=== PATIENT | male | born 1960 | race Caucasian/White ===

== ENCOUNTER 2021-04-09 13:54 | Emergency (ER) | payer OTHER, SELFPAY ==
[2021-04-09 14:03] VITALS: BP 124/77; PULSE 73; RESP 18; TEMP 37.1; O2SAT 96; BMI 31.0
--- NOTE | 2021-04-09 14:26 | ECG_ITS ---
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 Measurements Intervals [place] Rate: 64 P: 18 [place]: 132 QRS: 7 QRSD: 106 T: 22 QT: 377 QTc: 391 Interpretive Statements SINUS RHYTHM No previous ECG available for comparison Electronically Signed On 04-10-2021 10:10:35 CDT by Maki Hernandez M.D. [id number]
--- NOTE | 2021-04-09 14:26 | XR_ITS ---
WS: [id number] Portable AP upright chest, 04/09/2021 Clinical Data: chest pain Comparison: None. Findings: No nodules, masses or effusions are seen. The heart is normal. The pulmonary vascularity is not increased. No pneumonia or pneumothorax is seen. XR/XR chest 1V portable [id number] Impression: Negative chest.
[2021-04-09 14:46] LABS: Basophils % 0.6 %; Eosinophils # 0.3 10^3/uL (0.0-0.8); Hematocrit 43.3 % (42.0-52.0); Hemoglobin 15.4 g/dL (11.7-16.6); Lymphocytes # 1.3 10^3/uL (0.8-4.8); Lymphocytes % 19.2 %; Mean Corpuscular HGB Conc 35.6 g/dL (30.0-36.0); Mean Corpuscular Hemoglobin 31.8 pg (28.0-34.0); Mean Corpuscular Volume 89.3 fL (80-94); Mean Platelet Volume 11.4 fL (7.4-10.4); Monocytes # 0.3 10^3/uL (0.2-0.9); Monocytes % 4.6 %; Neutrophils # 4.97 10^3/uL (1.8-7.7); Neutrophils % 71.3 %; Nucleated Red Blood Cells % 0 %; Platelet Count 125 10^3/cmm (130-400); Red Blood Count 4.85 10^6/uL (4.1-5.3); Red Cell Distribution Width 12.4 % (12.1-15.1)
[2021-04-09 15:09] LABS: Troponin(5th) Baseline 6 ng/L (0-15)
[2021-04-09 15:16] LABS: Alanine Aminotransferase 56 U/L (0-41); Albumin Level 4.6 g/dL (3.5-5.2); Alkaline Phosphatase 56 IU/L (40-130); Anion Gap 15.1 (5-19); Aspartate Amino Transferase 27 U/L (0-40); Blood Urea Nitrogen 22 mg/dL (8-23); Carbon Dioxide 25 mmol/L (22-29); Chloride 103 mmol/L (98-107); Globulin 2.4 g/dL (1.3-4.6); Glomerular Filtration Rate 68.3 mL/min (90-130); Glucose 96 mg/dL (65-115); Osmolality Calculated 291 mOsm/kg (285-295); Potassium 4.1 mmol/L (3.5-5.1); Sodium 139 mmol/L (136-145); Total Bilirubin 0.6 mg/dL (0.15-1.2)
[2021-04-09] MEDS: aspirin 81 mg Chew Tablet 324 MG PO (15:22)
[2021-04-09 15:27] VITALS: BP 129/78; PULSE 71; RESP 23; O2SAT 96
[2021-04-09 16:00] VITALS: BP 122/81; PULSE 61; RESP 16; O2SAT 94
--- NOTE | 2021-04-09 16:26 | ECG_ITS ---
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 Measurements Intervals [place] Rate: 58 P: 14 MS: 124 QRS: 16 QRSD: 108 T: 29 QT: 379 QTc: 374 Interpretive Statements SINUS BRADYCARDIA Compared to ECG 04/09/2021 14:52:33 Sinus rhythm no longer present Electronically Signed On 04-11-2021 0:00:29 CDT by Maki Hernandez M.D. [id number]
[2021-04-09 17:00] VITALS: BP 133/85; PULSE 63; RESP 25; O2SAT 94
[2021-04-09 17:22] LABS: Troponin 5 2HR Delta 0 ABS# (0-10)
--- NOTE | 2021-04-09 17:33 | W.ED.CHESTPA ---
HPI - Chest Pain General: Chief Complaint: Chest Pain Stated Complaint: chest pains. high blood preassure,L arm pain Time Seen by Provider: 04/09/21 14:43 History of Present Illness: HPI narrative: 60-year-old male presents with epigastric/substernal chest discomfort. Reports this started around noon. Has resolved prior to arrival. Patient was concerned about his blood pressure being a bit high. Patient had a very brief left arm tingling that resolved. This was after this chest pressure. Patient reports having all that after eating. He denies any nausea, vomiting, diaphoresis, shortness of breath or other systemic complaints. Associated symptoms: Deny abdominal pain, dyspnea, fever(s), nausea, palpitations, syncope or vomiting Review of Systems Const: Denies: fever(s) or chills Eyes: Denies: change in vision ENMT: Denies: throat pain Card: Reports: chest pain; Denies: palpitations, irregular heart rhythm, lightheadedness or syncope Resp: Denies: dyspnea, productive cough or wheezing GI: Denies: abdominal pain, nausea or vomiting : Denies: flank pain or difficulty urinating Musc: Denies: neck pain Skin/Breast: Denies: rash or pruritus Neuro: Denies: headache(s) or dizziness Physical Exam Const: COMMON NORMALS: no acute distress, average body habitus, patient oriented x3 and healthy appearing HENMT: COMMON NORMALS: normocephalic and atraumatic HEAD & SCALP: normocephalic and atraumatic Eye: COMMON NORMALS: Equal, round and reactive pupils present and EOMs intact bilaterally PUPIL: Yes Equal, round and reactive pupils present Neck/C-Spine: COMMON NORMALS: full ROM and supple Resp: COMMON NORMALS: normal respiratory effort, No retractions and clear to auscultation bilaterally AUSCULTATION: clear to auscultation bilaterally Cardio: COMMON NORMALS: regular rate and regular rhythm RATE: regular rate RHYTHM: regular rhythm GI: COMMON NORMALS: Normal to inspection, nondistended, normoactive bowel sounds present, Soft to palpation and non-tender PALPATION: Yes Soft to palpation Extremity: COMMON NORMALS: normal to inspection and full ROM Neuro: COMMON NORMALS: patient oriented x3, CN's II-XII intact bilaterally, moves all extremities and no focal motor deficits Psych: COMMON NORMALS: mental status grossly normal, cooperative and normal affect Skin: COMMON NORMALS: no rashes or lesions noted GENERAL SKIN EXAM: no rashes or lesions noted Course Vital Signs: Vital signs: Vital Signs Temperature 98.7 F 04/09/21 14:03 Pulse Rate 71 04/09/21 15:27 Respiratory Rate 23 H 04/09/21 15:27 Blood Pressure 129/78 04/09/21 15:27 Pulse Oximetry 96 04/09/21 15:27 MDM - Chest Pain MDM Narrative: Medical decision making narrative: Patient with no further chest pain while in the ER. Patient with 3 - EKGs and 2 - troponins. Discussed with patient that at this time it does not appear that he is having an acute heart attack. I did recommend he follow-up with maintenance groundskeeper for recheck on outpatient basis. Patient is otherwise stable and discharged Lab Data: Attestation: I reviewed the patient's lab results. Labs: Lab Results 04/09/21 04/09/21 04/09/21 Range/Units 14:20 14:20 14:20 WBC 7.0 (4.0-10.0) 10^3/ uL RBC 4.85 (4.1-5.3) 10^6/u L Hgb 15.4 (11.7-16.6) g/dL Hct 43.3 (42.0-52.0) % MCV 89.3 (80-94) fL MCH 31.8 (28.0-34.0) pg MCHC 35.6 (30.0-36.0) g/dL RDW 12.4 (12.1-15.1) % Plt Count 125 L (130-400) 10^3/c mm MPV 11.4 H (7.4-10.4) fL Neut % (Auto) 71.3 % Lymph % (Auto) 19.2 % [place] % (Auto) 4.6 % Eos % (Auto) 4.0 % Baso % (Auto) 0.6 % Neut # (Auto) 4.97 (1.8-7.7) 10^3/u L Lymph # (Auto) 1.3 (0.8-4.8) 10^3/u L [place] # (Auto) 0.3 (0.2-0.9) 10^3/u L Eos # (Auto) 0.3 (0.0-0.8) 10^3/u L Baso # (Auto) 0.0 (0.0-0.1) 10^3/u L Nucleated RBC % (a uto) 0 % Nucleated RBCs # 0.0 /100WBC Sodium 139 (136-145) mmol/L Potassium 4.1 (3.5-5.1) mmol/L Chloride 103 (98-107) mmol/L Carbon Dioxide 25 (22-29) mmol/L Anion Gap 15.1 (5-19) BUN 22 (8-23) mg/dL Creatinine 1.1 (0.7-1.2) mg/dL GFR Calculation 68.3 L (90-130) mL/min Glucose 96 (65-115) mg/dL Calculated Osmolal ity 291 (285-295) mOsm/k g Calcium 9.0 (8.5-10.5) mg/dL Total Bilirubin 0.6 (0.15-1.2) mg/dL AST 27 (0-40) U/L ALT 56 H (0-41) U/L Alkaline Phosphata se 56 (40-130) IU/L Troponin T Baselin e 6 (0-15) ng/L Troponin T 120 Min davina (0-15) ng/L Delta Troponin T (0-10) ABS# Total Protein 7.0 (6.6-8.7) g/dL Albumin 4.6 (3.5-5.2) g/dL Globulin 2.4 (1.3-4.6) g/dL 04/09/21 Range/Units 16:28 WBC (4.0-10.0) 10^3/ uL RBC (4.1-5.3) 10^6/u L Hgb (11.7-16.6) g/dL Hct (42.0-52.0) % MCV (80-94) fL MCH (28.0-34.0) pg MCHC (30.0-36.0) g/dL RDW (12.1-15.1) % Plt Count (130-400) 10^3/c mm MPV (7.4-10.4) fL Neut % (Auto) % Lymph % (Auto) % [place] % (Auto) % Eos % (Auto) % Baso % (Auto) % Neut # (Auto) (1.8-7.7) 10^3/u L Lymph # (Auto) (0.8-4.8) 10^3/u L [place] # (Auto) (0.2-0.9) 10^3/u L Eos # (Auto) (0.0-0.8) 10^3/u L Baso # (Auto) (0.0-0.1) 10^3/u L Nucleated RBC % (a uto) % Nucleated RBCs # /100WBC Sodium (136-145) mmol/L Potassium (3.5-5.1) mmol/L Chloride (98-107) mmol/L Carbon Dioxide (22-29) mmol/L Anion Gap (5-19) BUN (8-23) mg/dL Creatinine (0.7-1.2) mg/dL GFR Calculation (90-130) mL/min Glucose (65-115) mg/dL Calculated Osmolal ity (285-295) mOsm/k g Calcium (8.5-10.5) mg/dL Total Bilirubin (0.15-1.2) mg/dL AST (0-40) U/L ALT (0-41) U/L Alkaline Phosphata se (40-130) IU/L Troponin T Baselin e (0-15) ng/L Troponin T 120 Min davina 6.00 (0-15) ng/L Delta Troponin T 0 (0-10) ABS# Total Protein (6.6-8.7) g/dL Albumin (3.5-5.2) g/dL Globulin (1.3-4.6) g/dL Imaging Data^: CXR: Attestation: I personally reviewed and interpreted this imaging study as follows: My impression: No acute findings Radiologist's impression: Negative chest EKG Data^: EKG 1: Attestation: I personally reviewed and interpreted this EKG as follows: EKG interpretation date: 04/09/21 EKG interpretation time: 14:12 Interpretation: hr 72, normal sinus rhythm, SD interval 125, no ST changes, normal EKG EKG 2: EKG interpretation date: 04/09/21 EKG interpretation time: 14:52 Interpretation: Heart rate 62, no ST changes, unchanged from prior. Regular rhythm, normal EKG EKG 3: EKG interpretation date: 04/09/21 EKG interpretation time: 16:19 Interpretation: Sinus rhythm, heart rate 58, no acute ST changes, normal EKG, unchanged from 2 prior Discharge Plan Discharge Patient Disposition: Home Clinical Impression: Chest pain Qualifiers: Chest pain type: unspecified Qualified Code(s): R07.9 - Chest pain, unspecified Condition: Stable Prescriptions: No Action sertraline 100 mg Tablet 200 mg PO DAILY RF: 0 Discharge Orders: Discharge ED (Routine); Ordered 04/09/21 Ordered By: Edilberto Olea Referrals: Jatinder Dominguez [Primary Care Provider] - Discharge Diet: Usual diet Discharge Activity: Resume usual activity Patient Instructions: Chest Pain - Noncardiac, Chest Pain (ED), Opioid Safety Activity Restrictions/Additional Instructions: Follow-up with your primary care provider and maintenance groundskeeper for recheck of today's complaint return to the ER as needed Coding Level of Care Code ED [facility] Attendant for Chg Fwd Exam Comprehensive
[2021-04-09 18:11] VITALS: BP 113/78; PULSE 62; RESP 18; O2SAT 95
== END 2021-04-09 18:11 | disposition home or self-care (01) ==
PROVIDERS: Physician Assistant; Emergency Provider Student in an Organized Health Care Education/Training Program; Family Provider Family Medicine; PCP Family Medicine
DX: R07.9 Chest pain, unspecified (principal)
CPT/HCPCS: 36415; 71045; 80053; 84484; 85025; 93005; 99283

== ENCOUNTER 2021-08-14 07:08 | Outpatient (CLI) | payer OTHER, SELFPAY ==
[2021-08-14 07:21] VITALS: BMI 30.9
--- NOTE | 2021-08-14 07:22 | NMCV_ITS ---
NM isabella perf SPECT r/s* [id number] Sarmad Gomez Age: 60 Gender: M : 1960 Exam Date: 08/14/2021 08:28 Ordering Phys: Maki Hernandez MD ([email or web address]) Technologist: DANNIE Riggs Exam Location: [facility] Indications: SUPRAVENTRICULAR TACHYCARDIA STRESS TEST Please [facility] IMAGE PROTOCOL Rest/Stress 1 Exercise Day Radiopharmaceutical Dose (mCi) Administration Site Administered by Rest: Tc-99m 10.6 IV DANNIE Riggs Sestamibi Stress:Tc-99m 33.0 IV DANNIE Macedo Sestamibi Rest: 14-Aug-2021 60 Discovery 630 Stress: 14-Aug-2021 15 Discovery 630 Radiopharmaceutical was injected at 87 % maximum heart rate. Images obtained in supine and prone position. SPECT RESULTS Technical Quality: Excellent Raw Data Analysis: Normal Image Corrections: No attenuation or motion correction applied Summed Stress Score: 2 Summed Rest Score: 3 Summed Difference Score: 0 PERFUSION FINDINGS Patchy areas of decreased tracer uptake were noted in the anterolateral, inferoseptal and apical lateral regions. No significant reversibility was noted in these regions FUNCTIONAL RESULTS (calculated via Gated SPECT) Stress Image LV EF (%): 67 Stress EDV (mL):86 TID: 0.73 Stress ESV (mL):28 FUNCTIONAL FINDINGS: Segmental wall motion analysis revealing no gross wall motion abnormalities. IMPRESSIONS 1. Myocardial perfusion imaging revealing patchy areas of persistent decreased tracer uptake in the anterolateral, apical lateral and inferoseptal regions, suggestive of myocardial scarring versus attenuation artifact. 2. Normal LV ejection fraction of 67%. 3. LV wall motion analysis revealing no gross wall motion normalities. 4. Normal LV volume. No significant coronary ischemia, based on the above findings. No similar previous studies are available for comparison. Dr Maki Hernandez MD FACC (Electronically Signed) Final Date: 14 August 2021 14:27 S
--- NOTE | 2021-08-14 07:22 | ECG_ITS ---
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 Interpretive Statements NAME OF STUDY: EXERCISE SESTAMIBI STRESS TEST INDICATION: Chest Pain PROCEDURE: The baseline electrocardiogram showed normal sinus rhythm with normal ST Ts.. At the baseline, the patient's blood pressure was 138/78 mm Hg with a heart rate of 65. The patient exercised for 10 minutes and 1 second on a standard Ralf protocol. Patient attained a maximum heart rate of 161 beats per minute( 100 % of the maximum predicted heart rate) with a blood pressure at the peak exercise of 181/84 mm Hg. The EKG at the peak exercise revealed some nonspecific ST changes. PVCs in the form of isolated beats and couplets also were noted to reduce the peak exercise. Patient did not have any chest pain or any other specific symptoms of coronary ischemia with exercise. Sestamibi was injected 1 minute prior to the peak exercise During the recovery phase, there were no new changes. The EKG reverted back to the baseline Blood pressure at the end of the recovery phase was 146/89 mm Hg with a heart rate of 90 per minute. CONCLUSION: 1. Nonspecific EKG changes with the treadmill exercise 2. Exercise-induced ventricular arrhythmia with no chest pain or any other specific cardiac symptoms 3. Fair exercise tolerance, attained a maximum of 13.5 METs 4. Sestamibi/Sestamibi perfusion results pending; see separate report. Electronically Signed On 08-28-2021 23:49:12 CDT by Maki Hernandez M.D. [id number]
[2021-08-14 09:45] VITALS: BP 146/86; PULSE 88
== END 2021-08-14 07:09 | disposition home or self-care (01) ==
LOC: RAD 07:12 → CDL 07:19
PROVIDERS: PCP Family Medicine; Visit Provider Internal Medicine Cardiovascular Disease
DX: R07.9 Chest pain, unspecified (principal); R06.02 Shortness of breath
CPT/HCPCS: 78452; 93017; A9500

== ENCOUNTER → 2022-03-11 10:07 | Outpatient (BNVA) | payer OTHER, SELFPAY | PROVIDERS: PCP Family Medicine; Referring Provider Family Medicine; Visit Provider Surgery | DX: Z12.11 Encounter for screening for malignant neoplasm of colon (principal); K42.9 Umbilical hernia without obstruction or gangrene | CPT/HCPCS: 99203 ==

== ENCOUNTER 2022-05-28 07:51 | Day surgery (SDC) | payer OTHER, SELFPAY ==
--- NOTE | 2022-05-28 08:28 | W.PM.OPSFHP ---
Same Day Surgery H&P Indication for Procedure/HPI DATE OF PROCEDURE: May 28, 2022 CHIEF COMPLAINT/INDICATIONFOR SURGICAL PROCEDURE: Screening colonoscopy PREOP DIAGNOSIS: Screening colonoscopy PLANNED PROCEDURE: Operation Date: 05/28/22 09:30 Proposed Procedures p Colonoscopy 86410/Z12.11 encounter for screening for mal neop(Not Applicable) - Kirill Marcelino MD 03/11/2022 This is a pleasant 61 years old gentleman is referred to my practice for screening colonoscopy.? Patient had one back in 2009 reported as normal per his description and he also does have an umbilical hernia.? No history of polyps or bleeding per rectum or colon cancer. 05/28/2022 Patient comes today for screening colonoscopy ROS All systems have been reviewed negative except as for the above or per problem list. Medications/Allergies* Home Medications Medication Instructions Recorded Confirmed Type sertraline 100 mg tablet 200 mg PO DAILY 04/09/21 05/28/22 History fluticasone propionate 50 2 spray INTRANASAL DAILY 05/21/21 05/28/22 History mcg/actuation nasal spray,suspension (Flonase Allergy Relief) Allergies/Adverse Reactions Allergy/AdvReac Type Severity Reaction Status Date / Time No Known Allergies Allergy Verified 05/28/22 08:29 Pertinent History/Comorbid Conditions* Medical History (Updated 03/11/22 @ 12:53 by Kirill Marcelino MD) Anxiety Chest pain Chest wall pain Chronic back pain Chronic neck pain Depression Diverticulosis Myalgia Social phobia SVT (supraventricular tachycardia) Umbilical hernia Ventral hernia Surgical History (Updated 05/21/21 @ 15:50 by Maki Hernandez MD) H/O cardiac radiofrequency ablation Family History (Updated 05/21/21 @ 14:46 by Melissa De La Cruz RN) CAD (coronary artery disease) Father Family/Other Dementia Mother Grandfather Suicide Brother Lung disease Brother Cancer Father Denies family history of Diabetes Clotting disorder Chronic kidney disease (CKD) Anesthesia complication Bleeding disorder Stroke Social History Smoking and tobacco status: never smoked Alcohol intake: current Alcohol intake frequency: holidays/special occasions only Pertinent Exam Findings alert, oriented x 3, regular rate & rhythm and procedure specific exam findings (Abdominal exam nontender nondistended soft stable umbilical hernia) Recommendations Surgery/Procedure today (Colonoscopy with possible biopsy) Coding Level of Care Code Acute 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
[2022-05-28] MEDS: sodium chloride 0.9% 1,000 ML 30 ML IV (08:40)
--- NOTE | 2022-05-28 09:00 | P.ANESASSM_ITS ---
Pre-Anesthetic Assessment Height/Weight: Height 1.63 m Weight 83.915 kg Preop Diagnosis: Screening colonoscopy Operation Date: 05/28/22 09:30 Proposed Procedures p Colonoscopy 65173/Z12.11 encounter for screening for mal neop(Not Applicable) - Kirill Marcelino MD Familial anesthetic complications: None Was Beta Nick taken within 24 hours: N/A Was Clonidine taken within 24 hours: N/A Last intake: Intake Last Liquid Date 05/27/22 Last Liquid Time 20:00 Last Solid Date 05/26/22 Last Solid Time 18:00 Social Alcohol (1-2 beers a night) and Tobacco Exam alert, oriented x 3, clear to auscultation bilaterally and regular rate & rhythm Airway Mallampati: Class IV Dentition: full CV/HEM Arrythmia (SVT s/p- ablation) Musc/skel Lower Back Pain Anesthetic Plan ASA status: 2 Anesthesia: MAC Medications/Allergies Home Medications Medication Instructions Recorded Confirmed Last Taken Type sertraline 100 mg tablet 200 mg PO DAILY 04/09/21 05/28/22 05/26/22 History fluticasone propionate 50 2 spray INTRANASAL DAILY 05/21/21 05/28/22 05/26/22 History mcg/actuation nasal spray,suspension (Flonase Allergy Relief) nitroglycerin 0.4 mg sublingual 0.4 mg SUBLINGUAL Q5M PRN 30 Days 05/21/21 05/28/22 Unknown Rx tablet #30 tab Allergies Allergy/AdvReac Type Severity Reaction Status Date / Time No Known Allergies Allergy Verified 05/28/22 08:29 [facility] Anesthesia Medical History Anxiety Chest pain Chest wall pain Chronic back pain Chronic neck pain Depression Diverticulosis Myalgia Social phobia SVT (supraventricular tachycardia) Umbilical hernia Ventral hernia Surgical History H/O cardiac radiofrequency ablation Family History Mother Dementia Father Cancer CAD (coronary artery disease) Family/Other CAD (coronary artery disease) Grandfather Dementia Brother Lung disease Suicide Denies family history of Diabetes Clotting disorder Chronic kidney disease (CKD) Anesthesia complication Bleeding disorder Stroke Social History Smoking and tobacco status: never smoked Alcohol intake: current Alcohol intake frequency: holidays/special occasions only Data Anesthesia Cardiac Studies: Sestamibi Stress Test (Cardiology) 08/14/21
[2022-05-28 10:04] VITALS: BP 90/65; PULSE 66; RESP 12; TEMP 36.4; O2SAT 95
[2022-05-28 10:23] VITALS: BP 104/75; PULSE 52; RESP 16; O2SAT 98
--- NOTE | 2022-05-28 16:33 | ANE.PACU2 ---
Inpatient post-anesthesia follow up: Airway intact: Yes Vital signs: Temperature 97.5 F Pulse Rate 52 Respiratory Rate 16 Blood Pressure 104/75 Pulse Oximetry 98 Oxygen Delivery Me thod Room Air Oxygen Flow Rate Fraction of Inspir ed Oxygen Hydration adequate: Yes Nausea and vomiting: No Pain level: 1 Mental status: Baseline
== END 2022-05-28 10:35 | disposition home or self-care (01) ==
PROVIDERS: Visit Provider Surgery
PROC: 0DJD8ZZ Inspection of Lower Intestinal Tract, Via Natural or Artificial Opening Endoscopic (ICD-10-PCS; CPT 45378; principal; 2022-05-28 09:30)
DX: Z12.11 Encounter for screening for malignant neoplasm of colon (principal); K57.30 Diverticulosis of large intestine without perforation or abscess without bleeding; D12.4 Benign neoplasm of descending colon; D12.5 Benign neoplasm of sigmoid colon
CPT/HCPCS: 45385; 88305; J2704; J7030

== ENCOUNTER → 2022-06-04 15:25 | Outpatient (BNVA) | payer OTHER, SELFPAY | PROVIDERS: PCP Family Medicine; Visit Provider Surgery | DX: Z09 Encounter for follow-up examination after completed treatment for conditions other than malignant neoplasm (principal); K63.5 Polyp of colon; K57.31 Diverticulosis of large intestine without perforation or abscess with bleeding | CPT/HCPCS: 99213 ==

== ENCOUNTER 2023-01-30 17:59 | Emergency (ER) | payer OTHER, SELFPAY ==
--- NOTE | 2023-01-30 18:04 | XRR_ITS ---
PROCEDURE INFORMATION: Exam: XR Chest Exam date and time: 01/30/2023 6:08 PM Age: 62 years old Clinical indication: Pain; Other: Burping; Prior surgery; Surgery type: Heart; Additional info: Cp TECHNIQUE: Imaging protocol: Radiologic exam of the chest. Views: 1 view. COMPARISON: CR XR chest 1V portable [id number] 04/09/2021 2:37 PM FINDINGS: Lungs: The lung bases are suboptimally assessed due to technique however the upper lungs are clear of focal consolidation. Pleural spaces: Unremarkable. No pleural effusion. No pneumothorax. Heart/Mediastinum: Cardiac silhouette appears normal in size. No obvious vascular congestion. Bones/joints: No acute osseous findings. Other findings: Single view was submitted. XR/XR chest 1V portable [id number] IMPRESSION: No obvious acute consolidation. Suboptimal lung base assessment. Followup including lateral view may be obtained if clinically indicated.
[2023-01-30 18:18] VITALS: BP 139/96; PULSE 76; RESP 17; TEMP 36.8; O2SAT 94; BMI 31.7
--- NOTE | 2023-01-30 18:22 | ED_ITS ---
HPI - Chest Pain General: Chief Complaint: Chest Pain Stated Complaint: cp Time Seen by Provider: 01/30/23 18:16 Source: patient Mode of arrival: ambulatory Limitations: no limitations History of Present Illness: 62-year-old male states he was working in his garage yesterday and he felt a slight pop in his left chest and states has been having some sharp chest pain since then he states improved the night but then again today started having some intermittent pains with some clamminess he denies any shortness of breath or nausea or vomiting he states he is currently pain-free denies any cough. Associated symptoms: Deny abdominal pain, dyspnea, fever(s), nausea or vomiting Review of Systems Const: Denies: fever(s), chills, body aches or change in appetite Eyes: Denies: blurry vision or eye discomfort ENMT: Denies: throat pain or dental pain Card: Reports: chest pain Resp: Denies: dyspnea GI: Denies: abdominal pain, nausea, vomiting or diarrhea : Denies: dysuria Musc: Denies: neck pain or back pain Skin/Breast: Denies: rash Neuro: Denies: headache(s) Psych: Denies: depression Benny/Lymph: Denies: easy bruising All/Imm: Denies: urticaria PFSH ED PFSH: Medical History Anxiety Chest pain Chest wall pain Chronic back pain Chronic neck pain Depression Diverticulosis Myalgia Social phobia SVT (supraventricular tachycardia) Umbilical hernia Ventral hernia Surgical History H/O cardiac radiofrequency ablation Family History Mother Dementia Father Cancer CAD (coronary artery disease) Family/Other CAD (coronary artery disease) Grandfather Dementia Brother Lung disease Suicide Denies family history of Diabetes Clotting disorder Chronic kidney disease (CKD) Anesthesia complication Bleeding disorder Stroke Social History Smoking and tobacco status: never smoked Alcohol intake: current Alcohol intake frequency: holidays/special occasions only Physical Exam Const: COMMON NORMALS: no acute distress, patient oriented x3 and healthy appearing HENMT: COMMON NORMALS: normocephalic and atraumatic HEAD & SCALP: normocephalic and atraumatic Eye: COMMON NORMALS: Equal, round and reactive pupils present and EOMs intact bilaterally PUPIL: Yes Equal, round and reactive pupils present Neck/C-Spine: COMMON NORMALS: full ROM and supple Chest: COMMONS NORMALS: normal inspection of the chest and normal palpation of entire chest wall Resp: COMMON NORMALS: normal respiratory effort, No retractions, No use of accessory muscles and clear to auscultation bilaterally AUSCULTATION: clear to auscultation bilaterally Cardio: COMMON NORMALS: regular rate, regular rhythm and No murmurs present (Cardio) RATE: regular rate RHYTHM: regular rhythm GI: COMMON NORMALS: Normal to inspection, nondistended, normoactive bowel sounds present, Soft to palpation, non-tender and no masses PALPATION: Yes Soft to palpation Extremity: COMMON NORMALS: normal to inspection and full ROM Neuro: COMMON NORMALS: patient oriented x3, moves all extremities and no focal motor deficits Psych: COMMON NORMALS: mental status grossly normal, Normal thought process present and cooperative THOUGHT PROCESS: Normal thought process present Skin: COMMON NORMALS: no rashes or lesions noted and no wounds GENERAL SKIN EXAM: no rashes or lesions noted Course Vital Signs: Vital signs: Vital Signs Temperature 98.2 F 01/30/23 18:18 Pulse Rate 66 01/30/23 19:12 Respiratory Rate 18 01/30/23 19:12 Blood Pressure 131/78 01/30/23 19:12 Pulse Oximetry 93 01/30/23 19:12 Oxygen Delivery Me thod 01/30/23 19:12 MDM - Chest Pain Medical Decision Making Patient presents for chest pains likely chest wall pain his troponins here are normal he is well-appearing here he is stable for discharge he is to follow-up with PCP and return if worsening. Lab Data 01/30/23 18:28 01/30/23 18:28 Radiology Impressions Chest X-Ray 01/30/23 18:04 IMPRESSION: No obvious acute consolidation. Suboptimal lung base assessment. Followup including lateral view may be obtained if clinically indicated. Laboratory Results WBC 7.6 10^3/uL (4.0-10.0) 01/30/23 18:28 RBC 4.71 10^6/uL (4.1-5.3) 01/30/23 18:28 Hgb 14.8 g/dL (11.7-16.6) 01/30/23 18: Hct 42.4 % (42.0-52.0) 01/30/23 18: MCV 90.0 fl (80-94) 01/30/23 18: MCH 31.4 pg (28.0-34.0) 01/30/23 18: MCHC 34.9 g/dL (30.0-36.0) 01/30/23 18: RDW 12.6 % (12.1-15.1) 01/30/23 18: Plt Count 128 10^3/cmm (130-400) L 01/30/23 18 MPV 11.3 fL (7.4-10.4) H 01/30/23 18: Neut % (Auto) 63.9 % 01/30/23 18: Lymph % (Auto) 24.4 % 01/30/23 18: [place] % (Auto) 4.9 % 01/30/23 18: Eos % (Auto) 5.8 % 01/30/23 18: Baso % (Auto) 0.5 % 01/30/23 18: Neut # (Auto) 4.84 10^3/uL (1.8-7.7) 01/30/23: Lymph # (Auto) 1.9 10^3/uL (0.8-4.8) 01/30/23 18: [place] # (Auto) 0.4 10^3/uL (0.2-0.9) 01/30/23 18: Eos # (Auto) 0.4 10^3/uL (0.0-0.8) 01/30/23 18: Baso # (Auto) 0.0 10^3/uL (0.0-0.1) 01/30/23 18 Nucleated RBC % (auto) 0 % 01/30/23 18: Nucleated RBCs # 0.0 /100WBC 01/30/23 18: Sodium 140 mmol/L (136-145) 01/30/23 18: Potassium 4.0 mmol/L (3.5-5.1) 01/30/23 18:28 Chloride 104 mmol/L (98-107) 01/30/23 18:28 Carbon Dioxide 24 mmol/L (22-29) 01/30/23 18:28 Anion Gap 16.0 (5-19) 01/30/23 18:28 BUN 24 mg/dL (8-23) H 01/30/23 18:28 Creatinine 0.8 mg/dL (0.7-1.2) 01/30/23 18:28 GFR Calculation 98.0 mL/min (90-130) 01/30/23 18:28 Glucose 82 mg/dL (65-115) 01/30/23 18:28 Calculated Osmolality 293 mOsm/kg (285-295) 01/30/23 18:28 Calcium 9.1 mg/dL (8.5-10.5) 01/30/23 18:28 Total Bilirubin 0.5 mg/dL (0.15-1.2) 01/30/23 18:28 AST 24 U/L (0-40) 01/30/23 18:28 ALT 44 U/L (0-41) H 01/30/23 18:28 Alkaline Phosphatase 69 U/L (40-130) 01/30/23 18:28 Troponin T Baseline 6 ng/L (0-15) 01/30/23 18:28 Troponin T 120 Minute 6.00 ng/L (0-15) 01/30/23 20:05 Total Protein 6.8 g/dL (6.6-8.7) 01/30/23 18:28 Albumin 4.6 g/dL (3.5-5.2) 01/30/23 18:28 Globulin 2.2 g/dL (1.3-4.6) 01/30/23 18:28 Lipase 18 U/L (13-60) 01/30/23 18:28 EKG Data EKG 1: I personally reviewed and interpreted this EKG as follows: EKG interpretation date: 01/30/23 EKG interpretation time: 18:22 Interpretation: nsr hr [address] or t wave abnormalities qrs 103 qtc 377 EKG 2: I personally reviewed and interpreted this EKG as follows: EKG interpretation date: 01/30/23 EKG interpretation time: 20:06 Interpretation: nsr hr [address] or t wave abnormalities qrs 103 qtc 388 Discharge Plan Discharge Patient Disposition: Home Clinical Impression: Chest pain Condition: Stable Prescriptions: New Naprosyn 500 mg tablet 500 mg PO BID PRN (Reason: pain) Qty: 20 0RF No Action fluticasone propionate [Flonase Allergy Relief] 50 mcg/actuation spray,suspension 2 spray intranasal DAILY Rx Instructions: administer into each nostril nitroglycerin 0.4 mg tablet, sublingual 0.4 mg sublingual Q5M PRN (Reason: chest pain) 30 Days Qty: 30 3RF Rx Instructions: until response; do not exceed 3 doses per episode sertraline 100 mg Tablet 200 mg PO DAILY Discharge Orders: Discharge ED (Routine); Ordered 01/30/23 Ordered By: Jung Marsh Referrals: Jaycee Araujo MD [Primary Care Provider] - 1-3 days Discharge Diet: Advance as tolerated Discharge Activity: Resume usual activity Patient Instructions: Chest Pain (ED) Coding Level of Care Code ED Station Agent for Jessica Lind
--- NOTE | 2023-01-30 18:22 | ECG_ITS ---
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 Measurements Intervals [place] Rate: 70 P: 15 SD: 133 QRS: 13 QRSD: 103 T: 26 QT: 356 QTc: 386 Interpretive Statements SINUS RHYTHM Compared to ECG 04/09/2021 16:19:15 Sinus bradycardia no longer present Electronically Signed On 01-31-2023 19:39:07 CDT by Maki Hernandez M.D. [email or web address] [email or web address] Visionhenry county hospitalProject [email or web address]/store/[id number]
[2023-01-30 18:35] LABS: Basophils % 0.5 %; Eosinophils # 0.4 10^3/uL (0.0-0.8); Eosinophils % 5.8 %; Hematocrit 42.4 % (42.0-52.0); Hemoglobin 14.8 g/dL (11.7-16.6); Lymphocytes # 1.9 10^3/uL (0.8-4.8); Lymphocytes % 24.4 %; Mean Corpuscular HGB Conc 34.9 g/dL (30.0-36.0); Mean Corpuscular Hemoglobin 31.4 pg (28.0-34.0); Mean Platelet Volume 11.3 fL (7.4-10.4); Monocytes # 0.4 10^3/uL (0.2-0.9); Monocytes % 4.9 %; Neutrophils # 4.84 10^3/uL (1.8-7.7); Neutrophils % 63.9 %; Nucleated Red Blood Cells % 0 %; Platelet Count 128 10^3/cmm (130-400); Red Blood Count 4.71 10^6/uL (4.1-5.3); Red Cell Distribution Width 12.6 % (12.1-15.1); White Blood Count 7.6 10^3/uL (4.0-10.0)
[2023-01-30 18:53] LABS: Troponin(5th) Baseline 6 ng/L (0-15)
[2023-01-30 18:54] LABS: Alanine Aminotransferase 44 U/L (0-41); Albumin Level 4.6 g/dL (3.5-5.2); Alkaline Phosphatase 69 U/L (40-130); Aspartate Amino Transferase 24 U/L (0-40); Blood Urea Nitrogen 24 mg/dL (8-23); Calcium 9.1 mg/dL (8.5-10.5); Carbon Dioxide 24 mmol/L (22-29); Chloride 104 mmol/L (98-107); Globulin 2.2 g/dL (1.3-4.6); Glucose 82 mg/dL (65-115); Lipase 18 U/L (13-60); Osmolality Calculated 293 mOsm/kg (285-295); Sodium 140 mmol/L (136-145); Total Bilirubin 0.5 mg/dL (0.15-1.2); Total Protein 6.8 g/dL (6.6-8.7)
[2023-01-30 19:12] VITALS: BP 131/78; PULSE 66; RESP 18; O2SAT 93
[2023-01-30] MEDS: aspirin 81 mg Chew Tablet 324 MG PO (19:15)
--- NOTE | 2023-01-30 20:06 | ECG_ITS ---
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 Measurements Intervals [place] Rate: 63 P: 16 [place]: 132 QRS: 7 QRSD: 103 T: 21 QT: 380 QTc: 391 Interpretive Statements SINUS RHYTHM Compared to ECG 01/30/2023 18:22:16 No significant changes Electronically Signed On 01-31-2023 23:20:34 CDT by Maki Hernandez M.D. [email or web address] Gorillapatient[facility] countyi2i[email or web address]/[id number]
[2023-01-30 20:50] VITALS: BP 129/81; PULSE 69; O2SAT 94
[2023-01-30 20:54] VITALS: BP 129/81; PULSE 69; RESP 18; O2SAT 94
[2023-01-30 20:54] LABS: Troponin 5 2HR Delta 0 ABS# (0-10)
== END 2023-01-30 20:53 | disposition home or self-care (01) ==
PROVIDERS: Emergency Provider Emergency Medicine; PCP Family Medicine
DX: R07.9 Chest pain, unspecified (principal); Z82.49 Family history of ischemic heart disease and other diseases of the circulatory system
CPT/HCPCS: 71045; 80053; 83690; 84484; 85025; 93005; 99285

== ENCOUNTER 2024-03-14 08:11 | Outpatient (CLI) | payer OTHER, SELFPAY ==
--- NOTE | 2024-03-14 08:15 | US_ITS ---
WS: [id number] RIGHT UPPER QUADRANT ULTRASOUND HISTORY: ELEVATED LIVER ENZYMES COMPARISON: None available. Liver: 16.8 cm in length. Moderate hepatic steatosis. Coarse echotexture with loss of the normal pare nchyma. No bile duct dilatation. No mass. Portal Vein: Normal hepatopetal flow with monophasic waveform. Gallbladder: Normally distended gallbladder with no stones or wall thickening. CBD: 0.3 cm Pancreas: Poorly visualized. Right kidney: 10.7 cm in length. Normal size and echogenicity. No hydronephrosis or mass. Aorta and IVC: Unremarkable abdominal aorta and IVC. No ascites. IMPRESSION: 1. Normal gallbladder. 2. Moderate hepatic steatosis. No bile duct dilatation.
== END 2024-03-14 08:12 | disposition home or self-care (01) ==
LOC: RAD 08:11
PROVIDERS: PCP Family Medicine; Visit Provider Family Medicine
DX: R74.01 Elevation of levels of liver transaminase levels (principal); K76.0 Fatty (change of) liver, not elsewhere classified
CPT/HCPCS: 76705

== ENCOUNTER 2024-07-06 08:43 | Emergency (ER) | payer OTHER, SELFPAY ==
[2024-07-06 09:06] VITALS: BP 125/84; PULSE 81; TEMP 37.2; O2SAT 96
--- NOTE | 2024-07-06 09:10 | ED_ITS ---
HPI - Weakness 2 General: Chief complaint: Weakness Stated complaint: body aches,n,d Time Seen by Provider: 07/06/24 08:46 Source: patient Mode of arrival: ambulatory Limitations: no limitations History of Present Illness: 63-year-old male states has been having increasing fatigue and feeling weak over the last 1 to 2 weeks. He states that seems to get worse throughout the day and when it is hot. He states he also had a tick bite to his abdomen 1 week ago and developed a rash is since resolved. He had some bodyaches denies any fever is well-appearing here with normal vitals Associated symptoms: Denies chest pain, chills, dysuria, fever(s), headache(s), nausea or vomiting Review of Systems 2 Const: Reports: fatigue and malaise; Denies: fever(s), chills, body aches or change in appetite Eyes: Denies: blurry vision or eye discomfort ENMT: Denies: throat pain or dental pain Card: Denies: chest pain Resp: Denies: dyspnea GI: Denies: abdominal pain, nausea, vomiting or diarrhea : Denies: dysuria Musc: Denies: neck pain or back pain Skin/Breast: Denies: rash Neuro: Denies: headache(s) PFSH ED 2 PFSH: Medical History Depression Social phobia Chronic neck pain Chronic back pain Diverticulosis Anxiety Ventral hernia Myalgia Chest wall pain Umbilical hernia SVT (supraventricular tachycardia) Chest pain Surgical History H/O cardiac radiofrequency ablation Family History Mother Dementia Father Cancer CAD (coronary artery disease) Family/Other CAD (coronary artery disease) Grandfather Dementia Brother Lung disease Suicide Denies family history of Diabetes Clotting disorder Chronic kidney disease (CKD) Anesthesia complication Bleeding disorder Stroke Social History Smoking and tobacco/nicotine status: never used tobacco/nicotine Alcohol intake: current Alcohol intake frequency: holidays/special occasions only Substance/Drug Use: never Physical Exam 2 Const: COMMON NORMALS: no acute distress, patient oriented x3 and healthy appearing HENMT: COMMON NORMALS: normocephalic and atraumatic HEAD & SCALP: n ormocephalic and atraumatic Eye: COMMON NORMALS: Equal, round and reactive pupils present and EOMs intact bilaterally PUPIL: Yes Equal, round and reactive pupils present Neck/C-Spine: COMMON NORMALS: full ROM and supple Chest: COMMONS NORMALS: normal inspection of the chest and normal palpation of entire chest wall Resp: COMMON NORMALS: normal respiratory effort, No retractions, No use of accessory muscles and clear to auscultation bilaterally AUSCULTATION: clear to auscultation bilaterally Cardio: COMMON NORMALS: regular rate, regular rhythm and No murmurs present (Cardio) RATE: regular rate RHYTHM: regular rhythm GI: COMMON NORMALS: Normal to inspection, nondistended, normoactive bowel sounds present, Soft to palpation, non-tender and no masses PALPATION: Yes Soft to palpation Extremity: COMMON NORMALS: normal to inspection and full ROM Neuro: COMMON NORMALS: patient oriented x3, moves all extremities and no focal motor deficits Psych: COMMON NORMALS: mental status grossly normal, Normal thought process present and cooperative THOUGHT PROCESS: Normal thought process present Skin: COMMON NORMALS: no rashes or lesions noted and no wounds GENERAL SKIN EXAM: no rashes or lesions noted Course 2 Vital Signs: Vital signs: Vital Signs Temperature 98.9 F 07/06/24 09:06 Pulse Rate 83 07/06/24 09:39 Blood Pressure 121/82 07/06/24 09:39 Pulse Oximetry 95 07/06/24 09:39 Oxygen Delivery Me thod Room Air 07/06/24 09:39 MDM - Weakness Medical Decision Making Patient presents here with some generalized weakness she had a recent tick bite as well could be tickborne illness we will start him on doxycycline blood work here is normal vitals are normal he stable for discharge at this time. Medical Records I reviewed the patient's medical records. Lab Data I reviewed the patient's lab results. 07/06/24 09:27 07/06/24 09:27 Radiology Impressions Chest X-Ray 07/06/24 10:40 Impression: No acute lung process is identified. Laboratory Results WBC 4.14 10^3/uL (3.29-11.43) 07/06/24 09:27 RBC 4.55 10^6/uL (3.85-5.65) 07/06/24 09: Hgb 14.50 g/dL (11.27-16.99) 07/06/24: Hct 41.4 % (37-53) 07/06/24: MCV 91.0 fl (82-101) 07/06/24: MCH 31.9 pg (27-33) 07/06/24: MCHC 35.0 g/dL (30-55) 07/06/24: RDW 12.7 % (12.1-15.1) 07/06/24: Plt Count 79 10^3/cmm (157-399) L 07/06/24: MPV 11.1 fL (7.4-10.4) H 07/06/24 09: Neut % (Auto) 80.5 % 07/06/24 09: Lymph % (Auto) 9.4 % 07/06/24: Glenn % (Auto) 7.5 % 07/06/24: Eos % (Auto) 1.9 % 07/06/24 09: Baso % (Auto) 0.5 % 07/06/24: Neut # (Auto) 3.33 10^3/uL (1.8-7.7) 07/06/24: Lymph # (Auto) 0.4 10^3/uL (0.8-4.8) L 07/06/24: Glenn # (Auto) 0.3 10^3/uL (0.2-0.9) 07/06/24: Eos # (Auto) 0.1 10^3/uL (0.0-0.8) 07/06/24 09: Baso # (Auto) 0.0 10^3/uL (0.0-0.1) 07/06/24: Nucleated RBC % (auto) 0 % 07/06/24: Nucleated RBCs # 0.0 /100WBC 07/06/24 09: Sodium 140 mmol/L (136-145) 07/06/24 09: Potassium 4.1 mmol/L (3.5-5.1) 07/06/24 09:27 Chloride 105 mmol/L (98-107) 07/06/24 09:27 Carbon Dioxide 24 mmol/L (22-29) 07/06/24 09:27 Anion Gap 15.1 (5-19) 07/06/24 09:27 BUN 20 mg/dL (8-23) 07/06/24 09:27 Creatinine 0.9 mg/dL (0.7-1.2) 07/06/24 09:27 GFR Calculation 85.2 mL/min (90-130) L 07/06/24 09:27 Glucose 135 mg/dL (65-115) H 07/06/24 09:27 Calculated Osmolality 295 mOsm/kg (285-295) 07/06/24 09:27 Calcium 9.0 mg/dL (8.5-10.5) 07/06/24 09: Total Bilirubin 0.7 mg/dL (0.15-1.2) 07/06/24 09: AST 35 U/L (0-40) 07/06/24 09: ALT 63 U/L (0-41) H 07/06/24 09:27 Alkaline Phosphatase 63 U/L (40-130) 07/06/24 09:27 Total Protein 6.9 g/dL (6.6-8.7) 07/06/24 09: Albumin 4.4 g/dL (3.5-5.2) 07/06/24 09: Globulin 2.5 g/dL (1.3-4.6) 07/06/24 09: Lipase 18 U/L (13-60) 07/06/24 09: TSH 1.30 uIU/mL (0.27-4.20) 07/06/24 09:27 Urine Color Yellow (Yellow) 07/06/24 09:37 Urine Appearance Clear (CLEAR) 07/06/24 09:37 Urine pH 5.5 (5-7) 07/06/24 09:37 Ur Specific [place] 1.025 (1.005-1.030) 07/06/24 09:37 Urine Protein Negative (Negative) 07/06/24 09:37 Urine Glucose (UA) Negative (Normal) 07/06/24 09:37 Urine Ketones Negative (Negative) 07/06/24 09:37 Urine Blood Negative (Negative) 07/06/24 09:37 Urine Nitrate Negative (Negative) 07/06/24 09:37 Urine Bilirubin Negative (Negative) 07/06/24 09:37 Urine Urobilinogen 1.0 mg/dL (Negative) 07/06/24 09:37 Ur Leukocyte Esterase Negative (Negative) 07/06/24 09:37 Urine RBC 0-2 /hpf (0-2) 07/06/24 09:37 Urine WBC 0-5 /hpf (0-5) 07/06/24 09:37 Ur Squamous Epith Cells 0-5 /hpf (0-5) 07/06/24 09:37 Amorphous Sediment Not Reportable 07/06/24 09:37 Urine Bacteria None seen /hpf (NONE) 07/06/24 09:37 Hyaline Casts 0-4 /lpf H 07/06/24 09:37 SARS-CoV-2 Ag (Rapid) negative (Negative) 07/06/24 09:44 XR interpretation done by ED provider, pending radiology final review ED provider radiology interpretation(s): cxr: no acute abnormality Discharge Plan Discharge Patient Disposition: Home Clinical Impression: Generalized weakness, Tick bite Condition: Stable Prescriptions: New doxycycline hyclate 100 mg tablet 100 mg PO BID 14 Days Qty: 28 0RF No Action fluticasone propionate [Flonase Allergy Relief] 50 mcg/actuation spray,suspension 2 spray intranasal DAILY Rx Instructions: administer into each nostril nitroglycerin 0.4 mg tablet, sublingual 0.4 mg sublingual Q5M PRN (Reason: chest pain) 30 Days Qty: 30 3RF Rx Instructions: until response; do not exceed 3 doses per episode sertraline 100 mg Tablet 200 mg PO DAILY Discharge Orders: Discharge ED (Routine); Ordered 07/06/24 Ordered By: Jung Marsh Referrals: Jaycee Araujo MD [Primary Care Provider] - 4-7 days Discharge Diet: Advance as tolerated Discharge Activity: Resume usual activity Patient Instructions: Tick Bite (ED), Weakness (ED) Coding Level of Care Code ED Insulation Nozzleman for Chg Fwd Related Data Home Medications Medication Instructions Recorded Confirmed sertraline 100 mg tablet 200 mg PO DAILY 04/09/21 07/06/24 fluticasone propionate 50 2 spray intranasal DAILY 05/21/21 07/06/24 mcg/actuation nasal spray,suspension (Flonase Allergy Relief) Previous Rx's Medication Instructions Recorded nitroglycerin 0.4 mg sublingual 0.4 mg sublingual Q5M PRN chest 05/21/21 tablet pain 30 days #30 tabs doxycycline hyclate 100 mg tablet 100 mg PO BID 14 days #28 tabs 07/06/24 Allergies Allergy/AdvReac Type Severity Reaction Status Date / Time No Known Allergies Allergy Verified 07/06/24 09:10
[2024-07-06 09:39] VITALS: BP 121/82; PULSE 83; O2SAT 95
[2024-07-06 09:41] LABS: Basophils % 0.5 %; Eosinophils # 0.1 10^3/uL (0.0-0.8); Eosinophils % 1.9 %; Hematocrit 41.4 % (37-53); Lymphocytes # 0.4 10^3/uL (0.8-4.8); Lymphocytes % 9.4 %; Mean Corpuscular Hemoglobin 31.9 pg (27-33); Mean Platelet Volume 11.1 fL (7.4-10.4); Monocytes # 0.3 10^3/uL (0.2-0.9); Monocytes % 7.5 %; Neutrophils # 3.33 10^3/uL (1.8-7.7); Neutrophils % 80.5 %; Nucleated Red Blood Cells % 0 %; Platelet Count 79 10^3/cmm (157-399); Red Blood Count 4.55 10^6/uL (3.85-5.65); Red Cell Distribution Width 12.7 % (12.1-15.1); White Blood Count 4.14 10^3/uL (3.29-11.43)
[2024-07-06] MEDS: ondansetron 2 mg/ML SDV 2 mL 4 MG IVP (09:57)
[2024-07-06] MEDS: sodium chloride 0.9% 1,000 ML 999 ML IV (09:57)
[2024-07-06 09:59] LABS: Charge for UA Resulting for Rev
[2024-07-06 10:05] LABS: Bilirubin Urine Negative (Negative); Blood Urine Negative (Negative); Glucose Urine UA Negative (Normal); Ketones Urine Negative (Negative); Leukocyte Esterase Urine Negative (Negative); Nitrate Urine Negative (Negative); Protein Urine Negative (Negative); Specific Gravity, Urine 1.025 (1.005-1.030); Urine Appearance Clear (CLEAR); Urine Color Yellow (Yellow); pH Urine 5.5 (5-7)
[2024-07-06 10:10] LABS: Bacteria Urine None Seen /hpf; Hyaline Casts Urine 0-4 /lpf; RBC Urine 0-2 /hpf (0-2); Squamous Epithelial Cell Urine 0-5 /hpf (0-5); WBC Urine 0-5 /hpf (0-5)
[2024-07-06 10:21] LABS: Alanine Aminotransferase 63 U/L (0-41); Albumin Level 4.4 g/dL (3.5-5.2); Alkaline Phosphatase 63 U/L (40-130); Anion Gap 15.1 (5-19); Aspartate Amino Transferase 35 U/L (0-40); Blood Urea Nitrogen 20 mg/dL (8-23); Carbon Dioxide 24 mmol/L (22-29); Chloride 105 mmol/L (98-107); Globulin 2.5 g/dL (1.3-4.6); Glomerular Filtration Rate 85.2 mL/min (90-130); Glucose 135 mg/dL (65-115); Lipase 18 U/L (13-60); Osmolality Calculated 295 mOsm/kg (285-295); Potassium 4.1 mmol/L (3.5-5.1); Sodium 140 mmol/L (136-145); Total Bilirubin 0.7 mg/dL (0.15-1.2); Total Protein 6.9 g/dL (6.6-8.7)
[2024-07-06 10:36] LABS: SARS Covid-2 Antigen negative (Negative)
--- NOTE | 2024-07-06 10:37 | PC.PHAR ---
PT IS [facility]. PT KNOWS HIS CURRENT MEDICATIONS AND HAS VERIFIED THEM.
--- NOTE | 2024-07-06 10:40 | XR_ITS ---
WS: [id number] Examination: XR chest 1V portable [id number] Reason for Exam: weakness Date: July 06, 2024 Comparison: January 30, 2023 Findings: The heart is not enlarged on this AP portable film. The mediastinum not widened. There is no pulmonary edema or pleural effusion. There is no dense consolidative change. XR/XR chest 1V portable [id number] Impression: No acute lung process is identified.
[2024-07-06 11:38] VITALS: BP 124/76; PULSE 81; O2SAT 95
[2024-07-07 15:53] LABS: Lyme AB Screen <0.90 index
[2024-07-11 17:29] LABS: RMSF IGG NOT DETECTED; RMSF IGM NOT DETECTED
== END 2024-07-06 11:30 | disposition home or self-care (01) ==
PROVIDERS: Emergency Provider Emergency Medicine; PCP Family Medicine
DX: R53.1 Weakness (principal); S30.861A Insect bite (nonvenomous) of abdominal wall, initial encounter; W57.XXXA Bitten or stung by nonvenomous insect and other nonvenomous arthropods, initial encounter; Z11.52 Encounter for screening for COVID-19
CPT/HCPCS: 71045; 80053; 81003; 81015; 83690; 84443; 85025; 86618; 86666; 86757; 87426; 96361; 96374; 99284; J2405; J7030

== ENCOUNTER 2025-01-29 23:29 | Emergency (ER) | payer OTHER, SELFPAY ==
[2025-01-29 23:30] VITALS: BP 103/72; PULSE 78; RESP 18; TEMP 36.8; O2SAT 95; BMI 35.9
--- NOTE | 2025-01-29 23:37 | ECG_ITS ---
[facility] Date: 2025-01-29 Pat Name: Sarmad Gomez Department: Room: Gender: Male [employer]: : 1960 Requested By: Lizzy Vigil Order Number: [id number] Prieto MD: Conrad Cruz M.D. Measurements Intervals [place] Rate: 74 P: 14 [place]: 112 QRS: 46 QRSD: 105 T: -8 QT: 350 QTc: 390 Interpretive Statements SINUS RHYTHM WITH SHORT [place] INTERVAL ST DEPRESSION, CONSIDER SUBENDOCARDIAL INJURY [0.1+ mV ST DEPRESSION] Compared to ECG 01/30/2023 20:06:06 Short [place] interval now present ST (T wave) deviation now present Electronically Signed On 02-02-2025 19:16:46 CDT by Conrad Cruz M.D. [email or web address] [id number]
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
[2025-01-29 23:45] LABS: Basophils # 0.1 10^3/uL (0.0-0.1); Basophils % 0.4 %; Eosinophils # 0.2 10^3/uL (0.0-0.8); Eosinophils % 1.9 %; Hematocrit 41.9 % (37-53); Lymphocytes # 2.9 10^3/uL (0.8-4.8); Lymphocytes % 25.7 %; Mean Corpuscular HGB Conc 34.6 g/dL (30-55); Mean Corpuscular Hemoglobin 31.8 pg (27-33); Mean Corpuscular Volume 91.9 fl (82-101); Mean Platelet Volume 11.2 fL (7.4-10.4); Monocytes # 0.5 10^3/uL (0.2-0.9); Monocytes % 4.8 %; Neutrophils # 7.46 10^3/uL (1.8-7.7); Nucleated Red Blood Cells % 0 %; Platelet Count 147 10^3/cmm (157-399); Red Blood Count 4.56 10^6/uL (3.85-5.65); White Blood Count 11.29 10^3/uL (3.29-11.43)
[2025-01-29 23:55] LABS: INR 1.06 (0.8-1.2)
[2025-01-29 23:56] LABS: Partial Thromboplastin Time 24.5 SECONDS (23.9-36.7)
[2025-01-30] VITALS (10 sets, daily range): BP systolic 75–116; BP diastolic 51–73; PULSE 80–95; O2SAT 93–99
[2025-01-30 00:01] LABS: Alanine Aminotransferase 347 U/L (0-41); Albumin Level 4.2 g/dL (3.5-5.2); Alcohol Level 201 mg/dL (0-10); Alkaline Phosphatase 46 U/L (40-130); Aspartate Amino Transferase 331 U/L (0-40); Blood Urea Nitrogen 16 mg/dL (8-23); Calcium 8.6 mg/dL (8.5-10.5); Carbon Dioxide 22 mmol/L (22-29); Chloride 111 mmol/L (98-107); Creatinine Clr Calc Pharmacy 64.6004; Globulin 2.5 g/dL (1.3-4.6); Glucose 115 mg/dL (65-115); Osmolality Calculated 306 mOsm/kg (285-295); Sodium 147 mmol/L (136-145); Total Bilirubin 0.5 mg/dL (0.15-1.2); Total Protein 6.7 g/dL (6.6-8.7)
[2025-01-30 00:02] LABS: Lactic Sepsis W/Reflex 3.8 mmol/L (0.5-2.2)
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
[2025-01-30] MEDS: iohexol 350 mg/mL 500 mL Btl (per mL) IV (00:34)
[2025-01-30] MEDS: acetaminophen 1,000 MG/100 ML PIGGYBACK 400 MG IV (01:22)
[2025-01-30] MEDS: sodium chloride 0.9% 1,000 ML 999 ML IV (01:24)
[2025-01-30] MEDS: ondansetron 2 mg/ML SDV 2 mL 4 MG IVP (01:27)
[2025-01-30 01:28] LABS: Reflex Lactate Order REFLEX LACTIC ORDERD
[2025-01-30] MEDS: sodium chloride 0.9% (100 ml) 100 ML 200 ML (02:50)
[2025-01-30 02:53] LABS: Lactic Acid level (Lactate) 3.4 mmol/L (0.5-2.2)
--- NOTE | 2025-01-30 03:52 | PC.NURSE ---
Emergent blood started prior to transfer to [facility]. 2 units running at time of transfer. Charge nurse started blood with primary nurse.
== END 2025-01-30 02:50 | disposition short-term general hospital (02) ==
PROVIDERS: Emergency Provider Emergency Medicine; PCP Family Medicine
DX: S32.038A Other fracture of third lumbar vertebra, initial encounter for closed fracture (principal); S22.088A Other fracture of T11-T12 vertebra, initial encounter for closed fracture; S25.89 Other specified injury of other blood vessels of thorax; S22.41XA Multiple fractures of ribs, right side, initial encounter for closed fracture; S35.403A Unspecified injury of unspecified renal artery, initial encounter; S36.898A Other injury of other intra-abdominal organs, initial encounter; S27.322A Contusion of lung, bilateral, initial encounter; I95.9 Hypotension, unspecified; D64.89 Other specified anemias; F10.129 Alcohol abuse with intoxication, unspecified; V86.99XA Unspecified occupant of other special all-terrain or other off-road motor vehicle injured in nontraffic accident, initial encounter
CPT/HCPCS: 70450; 71260; 72125; 72131; 74177; 80053; 80307; 83605; 85018; 85025; 85610; 85730; 86850; 86900; 86920; 93005; 96365; 96375; 99285; J0131; J2405; J7030; P9016

== ENCOUNTER 2025-03-02 13:33 | Outpatient (CLI) | payer OTHER, SELFPAY ==
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
== END 2025-03-02 13:34 | disposition home or self-care (01) ==
PROVIDERS: PCP Family Medicine; Visit Provider Family Medicine
DX: Z01.89 Encounter for other specified special examinations (principal)
CPT/HCPCS: 76770